=== PATIENT | female | born 1940 | race Caucasian/White ===

== ENCOUNTER → 2019-07-23 | Day surgery (SDC) | payer MEDICARE ==
[2019-07-21 13:16] LABS: BASOPHILS % 0.5 % (0.0-1.0); EOSINOPHILS # (AUTO) 0.1 (0.0-0.4); EOSINOPHILS % 0.9 % (0.0-6.0); HEMOGLOBIN 13.1 g/dL (12.0-16.0); LYMPHOCYTES # (AUTO) 1.5 (1.0-3.2); LYMPHOCYTES % 18.7 % (18.0-39.1); MEAN CORPUSCULAR HEMOGLOBIN 31.4 pg (28-32); MEAN CORPUSCULAR VOLUME 98.3 fL (81-99); MONOCYTES # (AUTO) 0.7 (0.2-0.8); MONOCYTES % 8.3 % (4.4-11.3); NEUTROPHILS # (AUTO) 5.8 (2.1-6.9); NEUTROPHILS % 71.2 % (38.7-80.0); PLATELET COUNT 241 x10e3/uL (140-360); RED BLOOD COUNT 4.17 x10e6/uL (3.6-5.1); RED CELL DISTRIBUTION WIDTH 13.1 % (11.7-14.4)
[2019-07-21 13:34] LABS: ANION GAP 16.4 mmol/L (8-16); BLOOD UREA NITROGEN 15 mg/dL (7-26); BUN/CREATININE RATIO 19 (6-25); CALCIUM 10.8 mg/dL (8.4-10.2); CARBON DIOXIDE 26 mmol/L (22-29); CHLORIDE 100 mmol/L (98-107); CREATININE, SERUM 0.81 mg/dL (0.57-1.11); EST GLOMERULAR FILTRATION RATE > 60 ML/MIN (60-); GLUCOSE 118 mg/dL (74-118); POTASSIUM 4.4 mmol/L (3.5-5.1); SODIUM 138 mmol/L (136-145)
--- NOTE | 2019-07-21 13:48 | Diagnostic Imaging Report ---
Exam: KUB - 2 views Indication: Preoperative Comparison: KUB of 06/17/2019 Findings: Interval placement of right and left internal nephroureteral stents. The previously seen large right renal pelvic calculus has been treated. There are now only several small fragments at the mid and lower poles of the right kidney measuring up to 4 mm. Left renal calculus appears unchanged and measures up to 1.8 cm. Nonobstructive bowel gas pattern. No free air. No acute osseous injury. Atherosclerotic arterial calcifications. Degenerative changes involve the visualized spine and both hip joints. Impression: Interval treatment of right renal pelvic calculus and placement of right and left internal nephroureteral stents. Unchanged left renal calculus. Signed by: Isai Mahoney MD on 07/21/2019 1:46 PM
[~2019-07-23] MED LIST: ACETAZOLAMIDE250 MG PO; ALEVE220 M1 PO; AMBIEN5 MG PO; ANASPAZ0.125 MG; ANORO ELLIPTA1 EACH INH; ASPIRIN81 MG PO; AZO1 EACH PO; CEFTRIAXONE SOD 1 GM/NS 50 ML 50 ML IV ONE; COMBIVENT RESPIM4 GM NEB; DALIRESP500 MCG PO; FENTANYL CITRATE/PF 100MCG/2 ML INJ ONE; GABAPENTIN100 MG PO; GLUCOPHAGE500 MG PO; HYDROCHLOROTH12.5 MG PO; LABETALOL HCL 0 ML ONE; LIDOCAINE HCL 2% LOCAL INJ 5 ML SDV VIAL INJ ONE; LUMIGAN2.5 M1 OU; MIRALAX17 GM PO; MIRTAZAPINE15 MG PO; MONTELUKAST SOD10 MG PO; ONDANSETRON HCL INJ 2MG/ML 2ML 2 MG/ML VIAL ONE; PHENERGAN SUPP25 MG; PROPOFOL IV EMULSION 10 MG/ML 20 ML VIAL ONE; SEVOFLURANE INHAL SOLN 250 ML PEN BTL ONE; TAMOXIFEN CITRA10 MG PO; VASOTEC5 MG PO; VENTOLIN HFA18 GM INH
[2019-07-23 11:35] VITALS: BP 129/82
--- NOTE | 2019-08-25 03:25 | Operative Report ---
DATE OF PROCEDURE: 07/23/2019 SURGEON: Alcides Mayo MD PREOPERATIVE DIAGNOSIS: Left nephrolithiasis. POSTOPERATIVE DIAGNOSIS: Left nephrolithiasis. OPERATIONS PERFORMED: 1. Staged left-sided extracorporeal shock wave lithotripsy. 2. Supervision of fluoroscopy, no radiologist present. ANESTHESIA: General. COMPLICATIONS: None. CLINICAL SUMMARY: Dia Maria is a 79-year-old woman with nephrolithiasis. She has an indwelling ureteral stent. She is brought for a staged lithotripsy. She is aware of the risks of bleeding, infection, injury to adjacent structures, need for additional procedures and elected to proceed. OPERATIVE PROCEDURE IN DETAIL: Informed consent was verified. The buttock area was properly identified, taken to the operating room, placed on the lithotripsy table in supine position. Anesthesia was uneventfully begun. The patient's left nephrolithiasis was localized with biplanar fluoroscopy. A total of 3000 shocks were delivered to the 18 mm stone burden with excellent fragmentation. The patient was then uneventfully reversed from anesthesia and taken to recovery room in stable condition. There were no complications to the procedure. She tolerated the procedure well. Plans will be to return the patient to the operating room to remove her stents, perform bilateral ureteroscopy and have a laser available. Ongoing urological followup is must. Alcides Mayo MD [facility] /[id number] cc: Alcides Mayo MD
== END | disposition home or self-care (01) ==
LOC: OR 09:14
PROVIDERS: ATTEND Urology
DX: N20.0 Calculus of kidney (principal); Z96.0 Presence of urogenital implants; Z01.812 Encounter for preprocedural laboratory examination; Z01.818 Encounter for other preprocedural examination; Z79.82 Long term (current) use of aspirin; Z87.891 Personal history of nicotine dependence
CPT/HCPCS: 36415; 50590; 74018; 80048; 83970; 85025; J0696; J2001; J2405; J2704; J3010

== ENCOUNTER → 2019-11-19 | Day surgery (SDC) | payer MEDICARE, OTHER ==
[2019-11-16 13:16] LABS: BASOPHILS # (AUTO) 0.1 (0.0-0.1); EOSINOPHILS # (AUTO) 0.3 (0.0-0.4); EOSINOPHILS % 4.3 % (0.0-6.0); HEMATOCRIT 39.8 % (34.2-44.1); LYMPHOCYTES # (AUTO) 1.2 (1.0-3.2); LYMPHOCYTES % 17.8 % (18.0-39.1); MEAN CORPUSCULAR HEMOGLOBIN 30.1 pg (28-32); MEAN CORPUSCULAR HGB CONC 30.2 g/dL (31-35); MEAN CORPUSCULAR VOLUME 99.7 fL (81-99); MONOCYTES # (AUTO) 0.5 (0.2-0.8); MONOCYTES % 7.5 % (4.4-11.3); NEUTROPHILS # (AUTO) 4.8 (2.1-6.9); NEUTROPHILS % 69.1 % (38.7-80.0); PLATELET COUNT 347 x10e3/uL (140-360); RED BLOOD COUNT 3.99 x10e6/uL (3.6-5.1); RED CELL DISTRIBUTION WIDTH 13.3 % (11.7-14.4)
--- NOTE | 2019-11-16 13:29 | Diagnostic Imaging Report ---
X-ray chest PA and lateral History: Stent/stone Comparison: 06/17/2019 Findings: Central airways unremarkable. Atherosclerotic aorta. Heart size normal. Other mediastinal contours unremarkable. No pleural effusion. No pneumothorax. Hyperinflated lung miller with low flat diaphragms consistent with the history of emphysema. An 11 mm nodular opacity in the right lower lung zone is unchanged. It was previously described as a nipple shadow. That is a strong possibility however this should be confirmed with repeat studies with nipple markers, oblique views or preferably a chest CT. Another opacity in the left midlung zone has increased in size from 15 mm to 18 mm and appears denser and more confluent. It also requires further evaluation with a CT. Visualized skeletal structures show degenerative changes. Upper abdomen unremarkable for right double-J stent partial visualization. Impression: Advanced emphysema based on the findings. Nodular opacities in both lungs. Correlation with prior imaging or preferably CT of the chest should be performed for better evaluation given the findings of emphysema. Signed by: Kishore Randhawa MD on 11/16/2019 1:25 PM
--- NOTE | 2019-11-16 13:37 | Diagnostic Imaging Report ---
X-ray KUB History: Stent/stone Comparison: 06/20/2020 Findings: Presence of bilateral double-J stents in expected location. Unchanged from the previous exam. The renal outlines are obscured by overlying bowel gas. Large calcific density in the left upper quadrant is no longer visualized. Tiny calcific density measuring approximately 2 mm and another smaller density immediately adjacent to this densities seen and could represent tiny calculi in the lower pole of the left kidney. Small round calcific densities are seen along the course of the left double-J stent just below the left sacroiliac joint and could represent gravel from the left renal calculus possibly post treatment. Tiny calcific densities are seen overlying the expected location of the right kidney and could represent tiny calculi however this is uncertain because of the poor visualization of the right kidney. No calcific densities are seen along the course of the right double-J stent. No calcific densities are seen in the expected location of the urinary bladder. There is suspicion of a calcified abdominal aortic aneurysm. Additional incidental findings include lumbars spine scoliosis, degenerative disc disease and degenerative changes in the regional bones. Impression: As above. Signed by: Kishore Randhawa MD on 11/16/2019 1:33 PM
[2019-11-16 13:45] LABS: ANION GAP 13.5 mmol/L (8-16); CALCIUM 10.4 mg/dL (8.4-10.2); CREATININE, SERUM 1.1 mg/dL (0.57-1.11); POTASSIUM 3.5 mmol/L (3.5-5.1)
[~2019-11-19] MED LIST changes: +B&O 60MG R/S 60 MG SUPP PR ONE; -CEFTRIAXONE SOD 1 GM/NS 50 ML 50 ML IV ONE; +DEXAMETHASONE SOD PHOS INJ 4 MG/ML VIAL ONE; +ETOMIDATE 2 MG/ML 10 ML INJ IV ONE; -FENTANYL CITRATE/PF 100MCG/2 ML INJ ONE; +FIBER TABS625 MG PO; +IOPAMIDOL 300MG/ML 50ML INFUS..BTL IV ONE; -LABETALOL HCL 0 ML ONE; +LUMIGAN2.5 M1 OD; -LUMIGAN2.5 M1 OU; -PROPOFOL IV EMULSION 10 MG/ML 20 ML VIAL ONE
[2019-11-19 13:58] VITALS: BP 118/85
--- NOTE | 2019-11-20 21:55 | Operative Report ---
DATE OF PROCEDURE: 11/19/2019 SURGEON: Alcides Mayo MD PREOPERATIVE DIAGNOSES: 1. Nephrolithiasis. 2. Bilateral indwelling ureteral stents. 3. Urinary tract infections. 4. Microscopic hematuria. 5. Bilateral indwelling ureteral stents. POSTOPERATIVE DIAGNOSES: 1. Bilateral nephrolithiasis. 2. Bilateral ureterolithiasis. 3. Bilateral indwelling ureteral stent. 4. Urinary tract infections. 5. Hematuria. 6. Grade 2 cystocele of the cephalad portion of the vagina. 7. Atrophic (senile) vaginitis. OPERATIONS PERFORMED: 1. Cystourethroscopy with complicated removal of bilateral indwelling ureteral stents (separate procedure performed for the diagnosis of stent, done with separate scope). 2. Right ureteroscopy (separate procedure performed to evaluate for residual stone or recurrent stones on the right-hand side). 3. Left semi-rigid ureteroscopy with stone manipulation and extraction (separate procedure performed for the left ureteral stones). 4. Left flexible ureteropyeloscopy with stone manipulation and extraction (separate procedure performed for the left renal stones). 5. Radiological services for supervision and interpretation of ureteroscopy. 6. Interpretation of retrograde ureteropyelography. 7. Supervision of fluoroscopy, no radiologist present. 8. Pelvic examination under anesthesia. ANESTHESIA: General. COMPLICATIONS: None. CLINICAL SUMMARY: Dia Maria is a 79-year-old woman, who underwent ureteral stenting followed by [facility]. The patient was supposed to have additional procedures in July, but she was afraid to have any procedure due to the less information about the COVID-19 pandemic. The patient eventually followed up, which allowed us to schedule this procedure. She is aware of the risks of bleeding, infection, injury to adjacent structures, need for additional procedures and elected to proceed. She also understands that urological followup on a long-term basis. The patient has had a previous left ureteral reimplantation. OPERATIVE PROCEDURE IN DETAIL: Informed consent was verified. Dia Maria was properly identified and taken to the operating room, placed on the cystoscopy table in a supine position. Anesthesia was uneventfully begun. The patient was then carefully and gently repositioned in the dorsal lithotomy position with all pressure points were well padded. Her genitalia were prepared and draped in the usual sterile fashion. The cystoscope sheath with obturator in place was atraumatically inserted into the patient's urethra and the bladder was drained. Panendoscopy of the bladder revealed no suspicious mucosal lesions, no tumors, no stones, no diverticula. A urine culture was sent directly from the bladder as the catheterized specimen. A guidewire was then placed in the right ureter and guided to the level of the patient's kidney. The stent was then grasped completely and then discarded. A semi-rigid ureteroscopy was then performed atraumatically, followed by flexible ureteroscopy with the intrarenal collecting portion. We carefully examined the entire collecting system thoroughly. 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 We also found calcification like material that seemed to be covering the mucosa within the papilla of the right kidney. There were no stones that could be grasped. The ureter was completely unremarkable without any stones, no tumors, no strictures. A guidewire was then inserted alongside the left ureteral stent into the reimplanted ureter. The stent was then grasped and then discarded. Semi-rigid ureteroscope was then placed alongside the guidewire into the distal left ureter, where numerous stones were identified, more than a dozen stones were then extracted from the left ureter with the semi-rigid ureteroscope. No additional stone fragments remained in the left ureter. Flexible ureteroscope was then brought up into the patient's left kidney and a guidewire. Panendoscopy revealed Kan's plaques throughout the left kidney. We also identified small stone, which was grasped with Nitinol tipless basket and extracted atraumatically. Interpretation of retrograde ureteropyelography, no radiologist present. Contrast was injected in retrograde fashion bilaterally. There was chronic appearing left-sided and right-sided hydronephrosis, the left-sided nephrosis was more significant. There were no obvious filling defects. There were no suspicious lesions. There was no extravasation. The patient's bladder was drained. Cystoscope was withdrawn. Pelvic examination under anesthesia revealed a grade 2 cystocele of the cephalad portion of the anterior abdominal wall, there was atrophic (senile) vaginitis. No abnormal palpable pelvic masses could be appreciated. There were no obvious mucosal lesions. The patient was then uneventfully reversed from anesthesia and taken to recovery room in stable condition. There were no complications to the procedure. She tolerated the procedure well. PLANS: 1. Follow up the patient's urine culture and sensitivity. 2. Order a nuclear medicine renal scan with Lasix washout to evaluate and the differential renal function. 3. We will follow the patient up in the office and of course on long-term basis, the patient will need a metabolic stone workup and ongoing urological followup. Alcides Mayo MD [facility] /[id number] cc: Chano Isidro MD
== END | disposition home or self-care (01) ==
LOC: OR 08:19
PROVIDERS: ATTEND Urology
DX: N20.0 Calculus of kidney (principal); Z46.6 Encounter for fitting and adjustment of urinary device; N20.1 Calculus of ureter; N39.0 Urinary tract infection, site not specified; R35.1 Nocturia; N81.89 Other female genital prolapse; N81.10 Cystocele, unspecified; N95.2 Postmenopausal atrophic vaginitis; N28.89 Other specified disorders of kidney and ureter; J44.9 Chronic obstructive pulmonary disease, unspecified; I25.10 Atherosclerotic heart disease of native coronary artery without angina pectoris; I10 Essential (primary) hypertension; E11.9 Type 2 diabetes mellitus without complications; L40.9 Psoriasis, unspecified; F17.210 Nicotine dependence, cigarettes, uncomplicated; Z01.810 Encounter for preprocedural cardiovascular examination; Z01.812 Encounter for preprocedural laboratory examination; Z01.818 Encounter for other preprocedural examination; Z11.59 Encounter for screening for other viral diseases; Z79.82 Long term (current) use of aspirin; Z85.3 Personal history of malignant neoplasm of breast
CPT/HCPCS: 36415; 52352; 71046; 74018; 74420; 80048; 83970; 84550; 85025; 87086; 87635; 88300; 93005; C1769; Q9967